=== PATIENT | male | born 1945 | race Caucasian/White ===

== ENCOUNTER 2019-02-11 23:45 | Observation (INO) | payer BC, MEDICARE ==
[~2019-02-11] VITALS: Ht 188 cm; Wt 84.4 kg
[2019-02-12 14:10] VITALS: BP 130/78
== END 2019-02-12 19:49 | disposition home or self-care (01) ==
LOC: ED 02-12 03:04 → INTOOBSV 02-12 03:09 → EDIP 02-12 03:09 → ED 02-12 03:17 → 5SO 02-12 03:56
PROVIDERS: ADMIT Internal Medicine; ATTEND Internal Medicine
DX: J96.01 Acute respiratory failure with hypoxia (principal); R55 Syncope and collapse; E78.5 Hyperlipidemia, unspecified; J44.9 Chronic obstructive pulmonary disease, unspecified; G89.29 Other chronic pain; M54.5 Low back pain; F17.210 Nicotine dependence, cigarettes, uncomplicated; D64.9 Anemia, unspecified; Z86.73 Personal history of transient ischemic attack (TIA), and cerebral infarction without residual deficits; Z79.01 Long term (current) use of anticoagulants; Z79.899 Other long term (current) drug therapy
CPT/HCPCS: 36415; 70450; 71045; 71275; 72110; 72125; 73030; 80048; 82040; 83036; 83735; 83880; 84439; 84443; 84484; 85025; 85379; 90471; 90715; 93005; 93306; 93880; 94640; 96360; 96361; 96372; 97165; 99285; G0378; J1644; J7030; J7613; J7626; Q9967